=== PATIENT | male | born 1965 | race Caucasian/White ===

== ENCOUNTER 2017-05-07 22:11 | Emergency (ER) | payer OTHER ==
--- NOTE | 2017-05-08 02:25 | ED NURSING NOTES ---
Clinical Report - Nurses [address] [place] [address] 05/07/2017 22:14 Patient: AMI RAI TRIAGE Triage time 22:26. Acuity: LEVEL 3. Chief Complaint: (high blood sugar). --22:36 Kristen Torres R.N. 22:26 05/07/17. BP: 171/84 taken on the left arm, while lying. HR: 95. RR: 18. O2 saturation: 96% on room air. Temp: 98.1 F. Pain level now: 0/10. --22:36 Kristen Torres R.N. Weight: 117.9 kg stated. Height/Length: 59 inches Per Patient. BMI: 52.5. --22:30 Kristen Torres R.N. Medications novalog pump. --22:32 Kristen Torres R.N. MetFORMIN HCl Oral (Tablet 500 mg) 1 tablet, 4x a day. --22:32 Kristen Torres R.N. Lipitor Oral (Tablet 40 mg) 1 tablet, daily. --22:32 Kristen Torres R.N. Losartan Potassium Oral (Tablet 100 mg) 1 tablet, daily. --22:32 Kristen Torres R.N. Norvasc Oral (Tablet 10 mg) 1 tablet, daily. --22:33 Kristen Torres R.N. Chlorthalidone Oral (Tablet 25 mg) 1 tablet, daily. --22:33 Kristen Torres R.N. Aspirin Oral (Tablet 81 mg) 1 tablet, daily. --22:34 Kristen Torres R.N. ZyrTEC Allergy Childrens Oral, PRN. --22:34 Kristen Torres R.N. Viagra Oral (Tablet 100 mg) 1 tablet, PRN. --22:34 Kristen Torres R.N. Colace Oral (Capsule 100 mg) 1 capsule, daily as needed. --22:34 Kristen Torres R.N. Allergies No Known Drug Allergy. --22:35 Kristen Torres R.N. History Arrived by private vehicle. Historian: patient. Accompanied by family. Primary physician (out of area). This started today. ( pt has a insulin pump states checked blood sugar and states 448 on reading, denies pain or symptoms, stayed at hotel last night thinks insulin got frozen and is not working anymore. Blood sugar has been high all day). PAST MEDICAL HX: Immunizations: up-to-date. SOCIAL HX: Never smoker. No alcohol use or drug use. No infectious disease exposure. ABUSE ASSESSMENT: No report of abuse. SELF HARM ASSESSMENT: A self harm assessment was performed. The patient answered "no" to the question "Have you recently felt down, depressed, or hopeless?", "Have you noticed less interest or pleasure in doing things?", "Do you have thoughts of harming or killing yourself?", "Are you here because you tried to hurt yourself?", "Have you ever tried to hurt yourself before today?", "Have you recently had thoughts about harming or killing others?" and "Do you have any dangerous items in your possession?". FALL RISK ASSESSMENT: Fall risk assessment completed. No fall risk identified. NUTRITIONAL RISK ASSESSMENT: The nutritional risk assessment revealed no deficiencies. FUNCTIONAL ASSESSMENT: Functional assessment: no impairments noted. LEARNING NEEDS ASSESSMENT: The learning needs assessment revealed no barriers. SKIN INTEGRITY ASSESSMENT: Skin integrity risk assessment completed. No skin integrity risk identified. --22:36 Kristen Torres R.N. PROBLEMS: Hypertension. Diabetes Mellitus. --22:36 Kristen Torres R.N. ADDITIONAL SURGERIES: no known surgeries. Interventions ID band on patient. To treatment room. --22:36 Kristen Torres R.N. PHYSICAL ASSESSMENT Ambulatory to room. GENERAL / NEURO / PSYCH: Alert. Oriented X 4. Appears in no acute distress. HEENT: Pupils equal, round and reactive to light. No facial asymmetry noted. Mucous membranes are pink. RESPIRATORY: Respirations not labored. Chest nontender. Breath sounds within normal limits. CVS: Normal sinus rhythm noted. Capillary refill less than 2 seconds. Pulses within normal limits. GI / : Abdomen soft and nontender and normal bowel sounds. SKIN: Skin intact. Skin is warm and dry. Normal skin turgor. --22:36 Kristen Torres R.N. NURSING PROGRESS NOTES Two patient identifiers checked. Call light placed in reach. Side rails up x 1. Bed placed in lowest position. Brakes of bed on. Patient ready for evaluation- chart flagged. --22:37 Kristen Torres R.N. Patient gowned. --22:37 Kristen Torres R.N. 22:37 05/07/2017 Site #1 started via IV in the right antecubital space with an 20g angiocath, with aseptic technique and good blood return; one attempt. Blood drawn: rainbow set. Labeled in the presence of the patient and sent to the lab. Saline lock flushed with 10 mL saline. --22:37 Kristen Torres R.N. 23:16 05/07/2017 Started bag #1 1000 mL IV Fluids IV NS (Saline); bolus of 1000 mL wide open then over 1 hour(s) via site #1. Allergies verified and confirmed 5 rights. IV patency established. IV site checked: no pain, redness, or swelling. IV flushed thoroughly pre- and post-medication administration. --23:16 Kristen Torres R.N. 23:21 05/07/2017 Insulin REG IVP 12 unit given over 1 minute(s) via site #1. Allergies verified and confirmed 5 rights. IV patency established. IV site checked: no pain, redness, or swelling. IV flushed thoroughly pre- and post-medication administration. IVP given by RN (witnessed by Nara DENNISON). --23:21 Kristen Torres R.N. 23:45. Finger stick glucose: 258 mg/dL; performed by [employer]; result shown to the RN. --00:06 Josh Yi 00:28 05/08/2017 IV Fluids IV NS Discontinued: completed. Total amount infused: 1000 mL. IV patency established. IV site checked: no pain, redness, or swelling. IV flushed thoroughly. --00:28 Kristen Torres R.N. 01:17 05/08/17. BP: 151/82. HR: 86. RR: 20. O2 saturation: 96% on room air. --01:19 Nara Saravia Finger stick glucose: 226; performed by nurse; result shown to the ED physician. --01:48 Kristen Torres R.N. DISPOSITION / DISCHARGE 02:50 05/08/2017 Site #1 removed upon discharge. Bandaid applied. --02:55 Elzbieta Kemp R.N. 02:56 05/08/17. Departure time: 02:55 May 08 2017. Condition at departure: improved. No learning barriers present. Discharge instructions provided and reviewed with the patient. Reviewed medication(s) side effects, precautions, dosing and course information. Prescription(s) given to the patient. Patient verbalized understanding. Written instructions provided in Urdu. The patient was discharged by the physician. He was discharged home and accompanied by spouse. He left the Emergency Department ambulatory and via private vehicle. Spouse driving. --02:56 Elzbieta Kemp R.N. 02:54 05/08/17. BP: 138/89 (regular adult cuff) taken on the left arm, while sitting. HR: 87. RR: 18. O2 saturation: 94% on room air. Temp: 98.1 F (oral). Pain level now: 0/10. --02:56 Elzbieta Kemp R.N. Locked/Released at 05/08/2017 3:28 by Kristen Torres R.N.
--- NOTE | 2017-05-08 02:25 | ED ORDER SUMMARY ---
..... Patient: AMI RAI OrderSheet [facility] VisitID: [id number] [place] [address] 51y, M Registration Date/Time: 05/07/2017 ORDER SHEET Weight: 117.9 kg (stated) Allergies: No Known Drug Allergy GENERAL ORDERS: CBC w Diff Urgent (22:38 05/07/2017 Martín R.N. per protocol) (22:38 WILLradburn R.N.) CMP Urgent (22:38 05/07/2017 CBradmoon R.N. per protocol) (22:38 Martín R.N.) POC Glucose (23:36 05/07/2017 Franco FLORES) (0:05 RKaruga) MEDICATION ORDERS: IV FLUIDS: IV NS : initial bolus 1000 mL (1000 mL/hr), then 1000 mL/hr (NOW) (23:09 05/07/2017 Franco FLORES) (23:16 CBradmono R.N.) Insulin Reg IV 12 units (HIGH ALERT MEDICATION, NOW) (23:10 05/07/2017 Franco FLORES) (23:21 Martín R.N.) ORDER SHEET NOTES: [Electronically signed by Kristen Torres R.N. (03:28 05/08/2017)] [Electronically signed by Belem Burnett MD (08:52 05/08/2017)] [Electronically locked/signed by Kristen Torres R.N. (03:28 05/08/2017)]
--- NOTE | 2017-05-08 02:25 | ED CLINICAL REPORT ---
Clinical Report - Physicians/Mid Levels [facility] [address] [place] [address] 05/07/2017 22:14 Patient: AMI RAI Time Seen: 2220. Arrived- By private vehicle. Historian- patient. HISTORY OF PRESENT ILLNESS Chief Complaint: elevated blood sugar. Severity: about 400 all day. At its maximum, severity described as moderate. When seen in the E.D., severity described as moderate. Modifying factors. Not worsened by anything. Not relieved by anything. This started today and is still present. No current or associated symptoms. (Patient states that he is on vacation from his home in [place]. He stayed in a hotel last night and put his insulin vials in the hotel refrigerator. Patient states that in the morning the water that he is also put in the refrigerator, and that he believes his insulin may have frozen also. He has an insulin pump and states that his blood sugars have not come down all day from around 400. He states that he is calculated carbohydrates in his meals as he always does, and has entered into his pump to adjust the insulin rate; however, this has not changed the blood sugar level at all. Patient states he's had the pump for 10 years and he is well acquainted with how to use it. He states that one of his doctors did tell him some years ago the insulin would be unusable if he ever allowed her to become frozen. Patient also states he Googled what could possibly go wrong with frozen insulin, and found that it would become inactive. Patient states he needs for vials of his insulin to get her through the rest of his trip, and he has more insulin at home in [place]. He states he felt very well has had absolutely no symptoms, and has nothad any trauma or other stress.). Similar symptoms previously: None. Recent medical care: Not recently seen/assessed. REVIEW OF SYSTEMS No fever, sore throat, sinus drainage, nasal congestion or cough. No difficulty breathing, chest pain, abdominal pain, nausea or vomiting. No diarrhea, black stools, bloody stools, chills or difficulty with urination. No skin rash, back pain, calf pain, headache or blackouts. No double vision. No difficulty with ambulation. polyuria. All systems otherwise negative, except as recorded above. PAST HISTORY Problems: Hypertension. Diabetes Mellitus. Additional Surgeries: no known surgeries. Medications: Colace Oral (Capsule 100 mg) 1 capsule, daily as needed. Viagra Oral (Tablet 100 mg) 1 tablet, PRN. ZyrTEC Allergy Childrens Oral, PRN. Aspirin Oral (Tablet 81 mg) 1 tablet, daily. Chlorthalidone Oral (Tablet 25 mg) 1 tablet, daily. Norvasc Oral (Tablet 10 mg) 1 tablet, daily. Losartan Potassium Oral (Tablet 100 mg) 1 tablet, daily. Lipitor Oral (Tablet 40 mg) 1 tablet, daily. MetFORMIN HCl Oral (Tablet 500 mg) 1 tablet, 4x a day. novalog pump. Allergies: No Known Drug Allergy. SOCIAL HISTORY Never smoker. No alcohol use or drug use. ADDITIONAL NOTES The nursing notes have been reviewed. PHYSICAL EXAM Vital Signs: 05/07/2017 22:26 BP: 171/84. HR: 95. RR: 18. O2 saturation: 96%. Temp: 98.1 F. Pain level now: 0/10. Have been reviewed. Appearance: Alert. No acute distress. Eyes: Pupils equal, round and reactive to light. Eyes normal inspection. ENT: Nose normal. Neck: Normal inspection. Neck supple. CVS: Normal heart rate and rhythm. Heart sounds normal. Pulses normal. Respiratory: No respiratory distress. Breath sounds normal. Abdomen: No visible injury. Soft and nontender. Back: Normal inspection. Skin: Skin warm and dry. Normal skin color. No rash. Normal skin turgor. Extremities: Extremities exhibit normal ROM. No lower extremity edema. Neuro: Oriented X 3. No motor deficit. No sensory deficit. LABS, X-RAYS, AND EKG Laboratory Tests: CBC w Diff: (LO: 05/07/2017 22:37) ( MsgRcvd 05/07/2017 22:57) Final results Test Result Flag Units (Reference) WHITE BLOOD COUNT 7.1 K/uL (4.5-11.5) RED BLOOD COUNT 4.66 M/uL (4.50-5.90) HEMOGLOBIN 14.2 gm/dL (13.5-17.5) HEMATOCRIT 41.7 % (41.0-53.0) MEAN CELL VOLUME 90 fL (80-100) MEAN CORPUSCULAR HGB 31 pg (26-34) MEAN CORPUSCULAR HGB CONC 34 g/dL (31-37) RED CELL DISTRIBUTION WIDTH 12.4 % (11.6-14.8) PLATELET COUNT 309 K/uL (150-400) NEUTROPHIL % 55.6 % (50-75) LYMPH % 33.5 % (25-40) MONO % 7.2 % (3-14) EOSINOPHIL % 3.1 % (0-4) BASOPHIL % 0.6 % (0-2) CMP: (LO: 05/07/2017 22:37) ( MsgRcvd 05/07/2017 23:04) Final results Test Result Flag Units (Reference) GLUCOSE 356 H mg/dL (70-110) BUN 20 H mg/dL (7-18) CREATININE 1.2 mg/dL (0.6-1.3) Estimated GFR >60 mL/min Estimated GFR- >60 mL/min Note: Persistent reduction over 3 months in eGFR<60 mL/min/1.73 m2 defines CKD. Patients with eGFR values>=60 mL/min/1.73 m2 may also have CKD if evidence ofpersistent proteinuria. Additional information may be foundat www.kidney.org. SODIUM 138 mmol/L (136-145) POTASSIUM 3.6 mmol/L (3.5-5.1) CHLORIDE 100 mmol/L (98-107) CARBON DIOXIDE 29 mmol/L (21-32) CALCIUM 8.7 mg/dL (8.5-10.1) TOTAL PROTEIN 7.5 g/dL (6.4-8.2) ALBUMIN 3.9 g/dL (3.3-5.0) BILIRUBIN, TOTAL 0.5 mg/dL (0.0-1.0) ALKALINE PHOSPHATASE 86 U/L (46-116) AST (SGOT) 19 U/L (15-37) ALT (SGPT) 39 U/L (12-78) . Pulse Oximetry: 05/07/2017 22:26 O2 saturation: 96%. (FIO2 - room air). Interpretation: normal. PROGRESS AND PROCEDURES Course of Care: Patient was worked up for his hyperglycemia with laboratory studies, which showed an elevated blood sugar 356. Patient was asymptomatic and very well appearing, and felt that it was most likely that his insulin was not working properly, due to being frozen. Patient was given 12 units of regular insulin IV as well as a liter of normal saline IV. He was observed in the emergency department for some time after this, and his blood sugar did come down to 226. I felt the patient was stable for discharge home. I didrefill his insulin vials for his insulin pump. Patient counseled in person regarding the patient's stable condition, test results, diagnosis and need for follow-up. Old medical records ordered. Old records unavailable. Disposition: Discharged. Condition: stable and improved. CLINICAL IMPRESSION Moderate hyperglycemia INSTRUCTIONS Warnings: GENERAL WARNINGS: Return or contact your physician immediately if your condition worsens or changes unexpectedly, if not improving as expected, or if other problems arise. Your Current Medications: CONTINUE TAKING THE FOLLOWING MEDICATIONS: Aspirin Oral : Tablet 81 mg, 1 tablet daily. Chlorthalidone Oral : Tablet 25 mg, 1 tablet daily. Colace Oral : Capsule 100 mg, 1 capsule daily, prn. Lipitor Oral : Tablet 40 mg, 1 tablet daily. Losartan Potassium Oral : Tablet 100 mg, 1 tablet daily. MetFORMIN HCl Oral : Tablet 500 mg, 1 tablet 4x a day. Norvasc Oral : Tablet 10 mg, 1 tablet daily. novalog pump*. Viagra Oral : Tablet 100 mg, 1 tablet PRN. ZyrTEC Allergy Childrens Oral : PRN. Prescription Medications: Novolog insulin 100 units/mL (10 cc vial): 2 units/hr via insulin pump, bolus as per pump calculation with meals. Disp #4 ten-cc vials. Follow-up: Follow up with your doctor as needed. Understanding of the discharge instructions verbalized by patient. (Electronically signed by Belem Burnett MD 05/08/2017 8:52)
--- NOTE | 2017-05-08 02:25 | ED ORDER SUMMARY ---
..... Patient: AMI RAI OrderSheet [facility] VisitID: [id number] [place] [address] 51y, M Registration Date/Time: 05/07/2017 ORDER SHEET Weight: 117.9 kg (stated) Allergies: No Known Drug Allergy GENERAL ORDERS: CBC w Diff Urgent (22:38 05/07/2017 Martín R.N. per protocol) (22:38 WILLradburn R.N.) CMP Urgent (22:38 05/07/2017 CBradmono R.N. per protocol) (22:38 Martín R.N.) POC Glucose (23:36 05/07/2017 Franco FLORES) (0:05 RKaruga) MEDICATION ORDERS: IV FLUIDS: IV NS : initial bolus 1000 mL (1000 mL/hr), then 1000 mL/hr (NOW) (23:09 05/07/2017 Franco FLORES) (23:16 CBradmono R.N.) Insulin Reg IV 12 units (HIGH ALERT MEDICATION, NOW) (23:10 05/07/2017 Franco FLORES) (23:21 Martín R.N.) ORDER SHEET NOTES: [Electronically signed by Kristen Torres R.N. (03:28 05/08/2017)] [Electronically signed by Belem Burnett MD (08:52 05/08/2017)] [Electronically locked/signed by Kristen Torres R.N. (03:28 05/08/2017)]
--- NOTE | 2017-05-08 08:53 | ED MAR SUMMARY ---
..... Medication Administration Record [facility] [address] [place] [address] Patient: MAI RAI Visit ID: [id number] 51y, M Weight: 117.9 kg Height/Length: 59 in BMI: 52.5 ALLERGIES: No Known Drug Allergy Start 23:16 05/07/2017 Kristen Torres R.N., Stop 00:28 05/08/2017 Kristen Torres R.N. Medication Administered: IV NS (SALINE), Dose: IV Fluids over 1 hour(s), Bolus: 1000 mL wide open, Dispensed: 1000 mL bag, Site: #1 right AC. Medication Ordered: IV NS : initial bolus 1000 mL (1000 mL/hr), then 1000 mL/hr (NOW). Given 23:21 05/07/2017 Kristen Torres R.N. Medication Administered: INSULIN REG [IVP], Dose: 12 unit IVP over 1 minute(s), Site: #1 right AC. Medication Ordered: Insulin Reg IV 12 units (HIGH ALERT MEDICATION, NOW).
--- NOTE | 2017-05-08 08:53 | ED DISCHARGE INSTRUCTIONS ---
Patient: AMI RAI General Instructions [facility] VisitID: [id number] [place] [address] 51y, M Registration Date/Time: 05/07/2017 Moderate hyperglycemia INSTRUCTIONS Warnings: GENERAL WARNINGS: Return or contact your physician immediately if your condition worsens or changes unexpectedly, if not improving as expected, or if other problems arise. Your Current Medications: CONTINUE TAKING THE FOLLOWING MEDICATIONS: Aspirin Oral : Tablet 81 mg, 1 tablet daily. Chlorthalidone Oral : Tablet 25 mg, 1 tablet daily. Colace Oral : Capsule 100 mg, 1 capsule daily, prn. Lipitor Oral : Tablet 40 mg, 1 tablet daily. Losartan Potassium Oral : Tablet 100 mg, 1 tablet daily. MetFORMIN HCl Oral : Tablet 500 mg, 1 tablet 4x a day. Norvasc Oral : Tablet 10 mg, 1 tablet daily. novalog pump*. Viagra Oral : Tablet 100 mg, 1 tablet PRN. ZyrTEC Allergy Childrens Oral : PRN. Prescription Medications: Novolog insulin 100 units/mL (10 cc vial): 2 units/hr via insulin pump, bolus as per pump calculation with meals. Disp #4 ten-cc vials. Follow-up: Follow up with your doctor as needed. Understanding of the discharge instructions verbalized by patient. ADDITIONAL INFORMATION Diabetes with High Blood Sugar You have been treated for high blood sugar (hyperglycemia). This may be becauseof an infection or other illness;eating too many sweets or starches ; not taking enough insulin. Home care High blood sugar may cause symptoms that you can learn to recognize, such as these: If you feel like your blood sugar may be too high, measure it using a blood or urine test. If it is above your usual range, use the "sliding scale"rRegular insulin dose your doctor gave you to correct this. If no "sliding scale" orders were given, contact your doctor for further advice. If your blood sugar is over 300, and you can't reach your doctor, go to the hospital emergency room. Monitor and write down your blood sugars - and insulin dose, if you take insulin - atleast twice a day. Do this before breakfast and before dinner. Do this for the next 3 to 5 days. Follow-up care Follow up with your health care provderduring the next week to review your blood sugar records. You will find out if you need to adjust your dose of insulin or other medicine for blood sugar. When to seek medical care Get prompt medical attention if either of these occur: High blood sugar.Symptoms are frequent urination, feeling dizzy, thirst, headache, nausea or vomiting, abdominal pain, and drowsiness or loss of consciousness. Low blood sugar. Symptoms are fatigue, headache, shakes, excess sweating, hunger, anxiety, reduced vision, drowsiness, weakness, confusion or loss of consciousness, and seizure. You have been given the following additional information: Diabetic Hyperglycemia (Electronically signed by Belem Burnett MD 05/08/2017 8:52)
--- NOTE | 2017-05-08 08:53 | ED MED RECONCILIATION SUMMARY ---
Patient: AMI RAI Medication Reconciliation Report [facility] VisitID: [id number] [place] [address] 51y, M Registration Date/Time: 05/07/2017 Weight: 117.9 kg Height/Length: 59 in. BMI: 52.5 ALLERGIES: No Known Drug Allergy The patient's Home Medications are listed below: CONTINUE TAKING THE FOLLOWING MEDICATIONS: Aspirin Oral (81 mg) 1 tablet, daily Chlorthalidone Oral (25 mg) 1 tablet, daily Colace Oral (100 mg) 1 capsule, daily Lipitor Oral (40 mg) 1 tablet, daily Losartan Potassium Oral (100 mg) 1 tablet, daily MetFORMIN HCl Oral (500 mg) 1 tablet, 4x a day Norvasc Oral (10 mg) 1 tablet, daily novalog pump Viagra Oral (100 mg) 1 tablet, PRN ZyrTEC Allergy Childrens Oral, PRN The source(s) of the original Home Medication information: Not obtained. The following Medications were given to the patient in the Emergency Department: IV NS IV Fluids bolus 1000 mL wide open, administered: 05/07/2017 11:16:00 PM Insulin REG [IVP] IVP 12 unit, administered: 05/07/2017 11:21:00 PM The following Medications were prescribed to the patient: Novolog insulin 100 units/mL (10 cc vial): 2 units/hr via insulin pump, bolus as per pump calculation with meals. Disp #4 ten-cc vials. -- Belem Burnett MD
--- NOTE | 2017-05-08 08:53 | ED MED RECONCILIATION SUMMARY ---
Patient: AMI RAI Medication Reconciliation Report [facility] VisitID: [id number] [place] [address] 51y, M Registration Date/Time: 05/07/2017 Weight: 117.9 kg Height/Length: 59 in. BMI: 52.5 ALLERGIES: No Known Drug Allergy The patient's Home Medications are listed below: CONTINUE TAKING THE FOLLOWING MEDICATIONS: Aspirin Oral (81 mg) 1 tablet, daily Chlorthalidone Oral (25 mg) 1 tablet, daily Colace Oral (100 mg) 1 capsule, daily Lipitor Oral (40 mg) 1 tablet, daily Losartan Potassium Oral (100 mg) 1 tablet, daily MetFORMIN HCl Oral (500 mg) 1 tablet, 4x a day Norvasc Oral (10 mg) 1 tablet, daily novalog pump Viagra Oral (100 mg) 1 tablet, PRN ZyrTEC Allergy Childrens Oral, PRN The source(s) of the original Home Medication information: Not obtained. The following Medications were given to the patient in the Emergency Department: IV NS IV Fluids bolus 1000 mL wide open, administered: 05/07/2017 11:16:00 PM Insulin REG [IVP] IVP 12 unit, administered: 05/07/2017 11:21:00 PM The following Medications were prescribed to the patient: Novolog insulin 100 units/mL (10 cc vial): 2 units/hr via insulin pump, bolus as per pump calculation with meals. Disp #4 ten-cc vials. -- Belem Burnett MD
--- NOTE | 2017-05-08 08:53 | ED MAR SUMMARY ---
..... Medication Administration Record [facility] [address] [place] [address] Patient: AMI RAI Visit ID: [id number] 51y, M Weight: 117.9 kg Height/Length: 59 in BMI: 52.5 ALLERGIES: No Known Drug Allergy Start 23:16 05/07/2017 Kristen Torres R.N., Stop 00:28 05/08/2017 Kristen Torres R.N. Medication Administered: IV NS (SALINE), Dose: IV Fluids over 1 hour(s), Bolus: 1000 mL wide open, Dispensed: 1000 mL bag, Site: #1 right AC. Medication Ordered: IV NS : initial bolus 1000 mL (1000 mL/hr), then 1000 mL/hr (NOW). Given 23:21 05/07/2017 Kristen Torres R.N. Medication Administered: INSULIN REG [IVP], Dose: 12 unit IVP over 1 minute(s), Site: #1 right AC. Medication Ordered: Insulin Reg IV 12 units (HIGH ALERT MEDICATION, NOW).
== END 2017-05-08 02:55 | disposition home or self-care (01) ==
LOC: ED SRH 22:11
DX: E11.65 Type 2 diabetes mellitus with hyperglycemia (principal); I10 Essential (primary) hypertension; Z79.82 Long term (current) use of aspirin; Z79.899 Other long term (current) drug therapy; Z79.84 Long term (current) use of oral hypoglycemic drugs; Z79.4 Long term (current) use of insulin; Z96.41 Presence of insulin pump (external) (internal)
CPT/HCPCS: 90098; 90100; 95059